=== PATIENT | male | born 1945 | race Caucasian/White ===

== ENCOUNTER 2020-03-18 10:53 | Outpatient (CLI) | payer MEDICARE, SELFPAY ==
--- NOTE | ~2020-03-18 | XR_ITS ---
EXAMINATION: XR knee LT min 4V DATE: 03/18/2020 11:35 INDICATION: Left knee pain. TECHNIQUE: 4 views of left knee were obtained. COMPARISON: None. FINDINGS: Bone alignment is normal. No fracture. There is mild osteoarthritis of medial and patellofe moral compartments. There is chondrocalcinosis of the menisci. There is a moderate-sized knee joint e ffusion. IMPRESSION: 1. Mild left knee osteoarthritis. 2. Moderate-sized left knee joint effusion. Reviewed, dictated and finalized at location A.
== END 2020-03-18 10:54 | disposition home or self-care (01) ==
PROVIDERS: PCP Family Medicine; Visit Provider Nurse Practitioner
DX: M25.562 Pain in left knee (principal); M17.12 Unilateral primary osteoarthritis, left knee; M25.462 Effusion, left knee
CPT/HCPCS: 73564

== ENCOUNTER 2020-05-06 10:48 | Outpatient (CLI) | payer OTHER, SELFPAY ==
--- NOTE | ~2020-05-06 | MR_ITS ---
EXAMINATION: MR knee LT wo con DATE: 05/06/2020 13:11 INDICATION: Unspecified left knee pain TECHNIQUE: Magnetic resonance imaging (MRI) of the left knee was performed without intravenous contra st. Sequences included coronal PD-weighted FSE, coronal PD-weighted FS FSE, sagittal T2-weighted FSE , sagittal PD-weighted FS FSE and axial PD weighted fat saturated FSE. COMPARISON: Left knee radiographs dated 04/25/2020 FINDINGS: Medial compartment: Medial meniscus is normal. Focal region of partial-thickness chondral ulceration along the medial mar gin of the anterior to central weightbearing medial femoral condyle. Lateral compartment: Linear increased signal extending to the inferior articular surface near the free edge of the body of the lateral meniscus which would be consistent with a longitudinal horizontal tear. There is however a similar configuration of chondrocalcinosis at this location on the plain radiographs which could a lso account for the linear increased signal. Articular cartilage is normal. Patellofemoral compartment: Deep chondral ulceration with underlying subarticular edema at the medial patellar facet and apical r idge. Mild chondral surface irregularity along the trochlear groove. Ligaments and tendons: Anterior and posterior cruciate ligaments are normal. There is a small ganglion cyst within the deep aspect of the otherwise normal appearing medial collateral ligament which may represent sequela of ch ronic sprain. The fibular collateral ligament is normal. Mild distal quadriceps tendinopathy without discrete tear. Well-defined linear bands of magic angle artifact at the distal aspect of the otherwis e normal patellar tendon. The visualized medial and lateral hamstring tendons as well as the iliotibi al band are normal. Fluid: Moderate-sized left knee joint effusion with synovitis most prominent along the posterior margin of H offa's fat pad and to lesser degree at the suprapatellar pouch. Small amount of fluid and additional synovitis extending to the popliteal recess. No loose osteochondral bodies identified. Osseous/other: Normal marrow signal aside from the previous noted small regions of mild subarticular edema at the pa tella. No fracture or pathologic marrow replacing process. IMPRESSION: 1. Increased signal at the body of the lateral meniscus equivocal for longitudinal horizontal tear ve rsus signal related to chondrocalcinosis as seen on the prior radiograph. 2. Mild medial and patellofemoral compartment osteoarthritis with high-grade patellar chondromalacia and small region of moderate grade chondral malacia along the weightbearing medial femoral condyle. 3. Moderate-sized knee joint effusion with synovitis most prominent along Hoffa's fat pad. Reviewed, dictated and finalized at location A. IMPRESSION: 1. Increased signal at the body of the lateral meniscus equivocal for longitudi nal horizontal tear versus signal related to chondrocalcinosis as seen on the p rior radiograph. 2. Mild medial and patellofemoral compartment osteoarthritis with high-grade pa tellar chondromalacia and small region of moderate grade chondral malacia along the weightbearing medial femoral condyle. 3. Moderate-sized knee joint effusion with synovitis most prominent along Hoffa 's fat pad.
== END 2020-05-06 10:49 ==
PROVIDERS: Visit Provider Orthopaedic Surgery
DX: M25.569 Pain in unspecified knee (principal); M17.12 Unilateral primary osteoarthritis, left knee; M94.262 Chondromalacia, left knee; M25.462 Effusion, left knee
CPT/HCPCS: 73721

== ENCOUNTER 2020-11-14 12:01 | Inpatient (IN) | payer MEDICARE, SELFPAY ==
[2020-11-14] VITALS (11 sets, daily range): BP systolic 90–163; BP diastolic 57–87; PULSE 72–85; RESP 16–27; TEMP 36.4–36.6; O2SAT 90–99; BMI 29.7
--- NOTE | ~2020-11-14 | CT_ITS ---
EXAMINATION: CTA chest PE protocol DATE: 11/14/2020 13:35 INDICATION: Chest pain. Elevated d-dimer. TECHNIQUE: Computed tomography angiography (CTA) of the chest was performed with 100 mL Omnipaque-350 intravenous contrast timed to evaluate the pulmonary arteries. Coronal maximum intensity projection 3D-reconstructions were created by the technologist. Automated exposure control and iterative reconst ruction technique were employed. Exam dose: 441.76 mGy-cm total exam DLP. COMPARISON: None. FINDINGS: There is diagnostic contrast enhancement of the pulmonary arteries and no evidence of pulmo nary embolism. Cardiomegaly. No pericardial or pleural effusion. Mild thoracic ascending aortic aneurysm (4.3 cm diameter). No hilar or mediastinal mass lesion or lymphadenopathy. Small sliding hiatal hernia. Normal adrenal glands. Mild dependent atelectasis, left greater than right. No pulmonary consolidation. Status post sternotomy. Diffuse osteopenia. Degenerative changes of the thoracic spine. IMPRESSION: No evidence of pulmonary embolus Cardiomegaly Reviewed, dictated and finalized at Location A. Reviewed, dictated and finalized at location B. HER OPERATOR
--- NOTE | ~2020-11-14 | US_ITS ---
EXAMINATION: US venous doppler [facility] DATE: 11/14/2020 15:49 INDICATION: Chest pain TECHNIQUE: Grimes scale images without and with compression and Doppler images of the bilateral lower e xtremity veins were obtained. COMPARISON: None FINDINGS: The right common femoral vein, profunda femoral vein, femoral vein, popliteal vein, peroneal trunk, p osterior tibial veins, and greater saphenous vein are patent. The left common femoral vein, profunda femoral vein, femoral vein, popliteal vein, peroneal trunk, po sterior tibial veins, and greater saphenous vein are patent. IMPRESSION: 1. Patent bilateral lower extremity veins. No evidence of deep venous thrombosis. Reviewed, dictated and finalized at location F. GING COGNITIVE ENGINEER IMPRESSION: 1. Patent bilateral lower extremity veins. No evidence of deep venous thrombosi s.
--- NOTE | ~2020-11-14 | XR_ITS ---
EXAMINATION: XR chest 1V portable INDICATION: Chest pain TECHNIQUE: Portable AP chest at 1259 hours COMPARISON: 11/07/2016 FINDINGS: Patchy bilateral opacities are present with more focal airspace opacity seen in the lung ba ses. There are linear subpleural opacities in the left midlung zone. The heart size is upper limits o f normal for technique. There is no pleural effusion or pneumothorax. Median sternotomy wires and med iastinal surgical clips are seen, likely from prior coronary artery bypass grafting. IMPRESSION: 1. Patchy bilateral opacities with more focal airspace opacity seen in the lung bases which could ref lect pneumonia and/or pulmonary edema and/or atelectasis. Reviewed, dictated and finalized at location A. GER [employer] IMPRESSION: 1. Patchy bilateral opacities with more focal airspace opacity seen in the lung bases which could reflect pneumonia and/or pulmonary edema and/or atelectasis.
--- NOTE | ~2020-11-14 | XR_ITS ---
EXAMINATION: XR chest 1V portable INDICATION: Shortness of breath TECHNIQUE: Portable AP chest at 0036 hours COMPARISON: 11/14/2020 FINDINGS: Patchy bilateral airspace opacities persist with slight worsening. Cardiomegaly is noted. T here is no pleural effusion or pneumothorax. Median sternotomy wires and mediastinal surgical clips a re seen, likely from prior coronary artery bypass grafting. IMPRESSION: 1. Patchy bilateral airspace opacities with interval worsening, consistent with pneumonia and/or pulm onary edema and/or atelectasis. Reviewed, dictated and finalized at location A. ORK ENGINEERING ADVISOR IMPRESSION: 1. Patchy bilateral airspace opacities with interval worsening, consistent with pneumonia and/or pulmonary edema and/or atelectasis.
--- NOTE | 2020-11-14 12:04 | ECG_ITS ---
Measurements Intervals [place] Rate: 76 P: 61 IA: 193 QRS: -55 QRSD: 128 T: 41 QT: 431 QTc: 486 Interpretive Statements SINUS RHYTHM ATRIAL COUPLET AND ATRIAL PREMATURE COMPLEX LEFT AXIS DEVIATION ANTEROLATERAL INFARCT, AGE INDETERMINATE BORDERLINE ST-T WAVE ABNORMALITY- INFERIOR LEADS BASELINE ARTIFACT- II, III, V5 ABNORMAL ECG Electronically Signed On 11-14-2020 14:00:44 EXTENSION WORK DIRECTOR by Balta Araiza D.O.
--- NOTE | 2020-11-14 12:08 | PC.NURSE ---
EDP NGUYỄN AT BEDSIDE.
--- NOTE | 2020-11-14 12:11 | ED.GENADULT ---
HPI - General Adult General Chief complaint: Chest Pain Stated complaint: CP Source: patient History of Present Illness HPI narrative: Patient is a 75 y/o male complaining of chest pain starting 4 hours ago. He describes his pain as a pressure and rates it as 8/10 currently. His pain radiates to his back. He states that Nitro helps some with his pain. He has no SOB. Related Data Home Medications Medication Instructions Recorded Confirmed carvedilol 3.125 mg tablet 3.125 mg PO Q12H 08/25/19 11/14/20 cholecalciferol (vitamin D3) 50 2,000 unit PO DAILY 08/25/19 11/14/20 mcg (2,000 unit) tablet clopidogrel 75 mg tablet 75 mg PO DAILY 08/25/19 11/14/20 ferrous sulfate 325 mg (65 mg 325 mg PO DAILY 08/25/19 11/14/20 iron) tablet hydrochlorothiazide 50 mg tablet 50 mg PO DAILY 08/25/19 11/14/20 lisinopril 40 mg tablet 40 mg PO DAILY 08/25/19 11/14/20 pravastatin 40 mg tablet 40 mg PO DAILY 08/25/19 11/14/20 multivitamin 1 tablet PO DAILY 04/25/20 11/14/20 cilostazol 100 mg PO BID 11/14/20 11/14/20 prednisone 20 mg PO BID 11/14/20 11/14/20 Allergies Allergy/AdvReac Type Severity Reaction Status Date / Time codeine Allergy Unknown Nausea and Verified 05/16/20 10:50 Vomiting tramadol Allergy Unknown Nausea and Verified 05/16/20 10:50 Vomiting Review of Systems Constitutional: Constitutional: Denies chills, Denies fever(s), Denies headache(s) and Denies weakness Eyes: Eyes: Denies blurry vision ENT: Denies headache(s) and Denies neck pain Cardiovascular: Cardiovascular: Reports chest pain and Denies dyspnea Respiratory: Respiratory: Denies cough and Denies dyspnea Gastrointestinal: Gastrointestinal: Denies abdominal pain, Denies diarrhea, Denies nausea and Denies vomiting Genitourinary: Genitourinary: Denies hematuria and Denies dysuria Musculoskeletal: Musculoskeletal: Denies back pain and Denies neck pain Neurologic: Denies headache(s) and Denies weakness [facility] Past Medical History Medical History (Updated 11/14/20 @ 20:36 by Nica Lipscomb MD) AAA (abdominal aortic aneurysm) Supposed to get surgery 1 month Anemia Anemia, iron deficiency Arthritis Bleeding nose CAD (coronary atherosclerotic disease) Carotid artery stenosis Colon polyps Combined hyperlipidemia Depression Gout Hearing loss History of DC (myocardial infarction) Hx of colonic polyp Hypertension Kidney disease PAD (peripheral artery disease) Sleep apnea Waiting on CPAP Surgical History Surgical History (Updated 11/14/20 @ 16:52 by Mariel Starkey NP) H/O colonoscopy with polypectomy History of back surgery History of quadruple bypass History of renal stent S/P peripheral artery angioplasty with stent placement Right leg Family History Family History Father Family history of coronary artery disease Mother Family history of coronary artery disease Other AAA (abdominal aortic aneurysm) Arthritis Diabetes mellitus Heart disease Hypertension Malignant neoplasm Social History Social History (Updated 11/14/20 @ 16:55 by Mariel Starkey NP) Social History: The patient lives with his who is in poor health. He does not have a durable power tax associate attorney for healthcare. His granddaughter is studying to be an RN and she lives 2 doors down. The patient is a full code. The patient had 2 children post son. One unintentionally overdosed and is . The other son as a drug addiction according to the granddaughter. The patient is retired from [employer] . According to the granddaughter the patient was caught smoking a cigarette just yesterday. So he does continue to smoke. No alcohol or illicit drugs. Smoking packs per day: 0.5 Smoking cigarettes per day: 10.0 Years smoked: 50 Smoking pack-years: 25.00 Smoking status: Current every day smoker Tobacco type: cigarettes Second hand tobacco smoke exposure: No Alcohol intake: never Sub
[2020-11-14 12:16] LABS: Basophils Absolute Auto 0.1 K/mm3 (0.0-0.1); Basophils Percent Auto 0.5 % (0.2-1.2); Eosinophils Percent Auto 0.1 % (0-4.4); Hemoglobin 11.5 g/dL (14.0-18.0); Immature Granulocyte Absolute 0.38 K/mm3 (0.00-0.031); Immature Granulocyte Percent A 2.5 % (0-0.5); Lymphocytes Absolute Auto 1.95 K/mm3 (0.9-3.2); Mean Corpuscular HGB Conc 31.9 g/dl (32-36); Mean Corpuscular Hemoglobin 27.6 pg (26-34); Mean Corpuscular Volume 86.5 fl (80-100); Mean Platelet Volume 9.1 fl (7.4-10.4); Monocytes Absolute Auto 0.3 K/mm3 (0.1-0.6); Monocytes Percent Auto 1.9 % (2.6-8.5); Neutrophils Absolute Auto 12.3 K/mm3 (1.3-6.7); Platelet Count Result 468 k/mm3 (150-375); Red Blood Count 4.16 M/mm3 (4.6-6.20); Red Cell Distribution Width 15.4 % (11.5-14.5)
[2020-11-14 12:27] LABS: Anion Gap 8 mmol/L (8-16); Blood Urea Nitrogen 38 mg/dL (9-20); Calcium 9.2 mg/dL (8.4-10.2); Carbon Dioxide 31 mmol/L (22-30); Chloride 100 mmol/L (98-107); Estimated CRCL calculation 36 ml/min; Estimated Glomerular Filt Rate 45; Glucose 198 mg/dL (75-110); Potassium 4.1 mmol/L (3.4-5.0); Sodium 139 mmol/L (137-145)
[2020-11-14 12:28] LABS: INR 0.9; Prothrombin Time 12.5 Seconds (11.1-14.7)
[2020-11-14 12:31] LABS: Partial Thromboplastin Time 31.2 SECONDS (22.3-36.8)
--- NOTE | 2020-11-14 12:37 | ECG_ITS ---
Measurements Intervals [employer] Rate: 71 P: 60 PA: 208 QRS: -38 QRSD: 121 T: 19 QT: 392 QTc: 429 Interpretive Statements SINUS RHYTHM ATRIAL PREMATURE COMPLEXES BORDERLINE AV CONDUCTION DELAY MINIMAL Q WAVES- HIGH LATERAL LEADS ANTEROLATERAL INFARCT, AGE INDETERMINATE BORDERLINE ST ABNORMALITY- INFERIOR LEADS BASELINE ARTIFACT- I, II, AVR, V3, V6 ABNORMAL ECG Electronically Signed On 11-14-2020 14:02:34 PERSONAL BANKING ASSISTANT by Balta Araiza D.O.
[2020-11-14 12:39] LABS: Troponin I 0.023 ng/mL (0.000-0.034)
[2020-11-14] MEDS: MORPHINE SULFATE (*CRX) 2 MG/ML INJ (12:43)
[2020-11-14] MEDS: NITROGLYCERIN SL 0.4 MG TABLET (12:43)
[2020-11-14 13:13] LABS: D Dimer 18.49 ug/mL (<0.48)
[2020-11-14] MEDS: ONDANSETRON INJ 4 MG/2 ML VIAL (13:22)
--- NOTE | 2020-11-14 13:24 | PC.NURSE ---
c/o of increased chest pain vorb for ekg, nitro x1 and morphine 2mg ivp from dr serrano after admin of nitro and morphine, pt became nauseated, dry heaves witnessed vorb x1 for zofran 4mg ivp from dr serrano
[2020-11-14] MEDS: SODIUM CHLORIDE 0.9% IV 1,000 ML 999 ML IV CONT (14:18)
[2020-11-14 15:09] LABS: Lactic Acid Reflex 3.9 mmol/L (0.7-2.1)
[2020-11-14 15:28] LABS: Troponin I 0.142 ng/mL (0.000-0.034)
--- NOTE | 2020-11-14 16:17 | PM.IMHP ---
H&P: HPI History of Present Illness Date/Time: 11/14/20 16:17 Chief Complaint: Chest pain Narrative: Cirilo Ruiz Jr. is a 75 year old male who sees a vascular surgeon elsewhere. The patient has a history of having a AAA. The patient is very hard of hearing in the granddaughters at the bedside answering questions. The granddaughter tells me that in about 1 month he is due to have his AAA repaired. The patient has been having some abdominal pain and some chest pain. He told the granddaughter that he was having some midsternal chest pain that did radiate down his left arm. He has a history of having a he also has a history of having peripheral artery disease and had a stent placed to his right leg. The patient's 1st troponin is 0.142. Lactic acid is 3.9. He is diabetic and his blood sugars 198. Creatinine is 1.5. The granddaughter is not sure if the patient has chronic renal failure. His D-dimer was elevated to 18.49. He has had no previous history of any blood clots. Chest CTa was read as no pulmonary embolism. I did request that we do venous Dopplers and those were negative as well. Nitroglycerin, morphine, Zofran, IV fluids, azithromycin and Rocephin. With more focal airspace opacities seen in the lung bases which could represent pneumonia and/or pulmonary edema and/or atelectasis. The granddaughter stated that she was not aware of the patient having any congestive heart failure. His and the granddaughter lives 2 houses down and she hopes to take care of her grandparents. The patient's white count was noted to be 15.0. However the granddaughter tells me that the patient was just started on prednisone about 2 days ago for gout to the small toe on the right foot. His H&H is stable at baseline 11.5 and 36.0. The patient was swabbed for COVID-19 and placed in isolation. Oxygen was applied. Blood cultures were obtained. I placed a consult for Cardiology as 1 has not been done as of yet. Patient is being admitted for observation on the date of service of 11/14/2020 Review of Systems Review of Systems: Narrative: The patient is very hard of hearing in the granddaughter is answering questions. All systems reviewed & are unremarkable except as noted in HPI and below Constitutional: Constitutional: Reports as per HPI and Reports no additional constitutional complaints Eyes: Eyes: Reports as per HPI and Reports no additional eye complaints ENT: Reports system reviewed and no additional complaints, except as documented and Reports Normal hearing present Cardiovascular: Cardiovascular: Reports no additional cardiovascular complaints Respiratory: Respiratory: Reports no additional respiratory complaints and Reports no additional respiratory complaints Gastrointestinal: Gastrointestinal: Reports as per HPI and Reports no additional gastrointestinal complaints Musculoskeletal: Musculoskeletal: Reports no additional musculoskeletal complaints Integumentary/Breasts: Skin/Breast: Reports system reviewed and no additional complaints, except as docu and Reports as per HPI Neurologic: Reports system reviewed and no additional complaints, except as documented, Reports as per HPI and Reports Normal hearing present Psychiatric: Psychiatric: Reports no additional psychiatric complaints and Reports as per HPI Endocrine: Endocrine: Reports no additional endocrine complaints Hematologic/Lymphatic: Hematologic/Lymphatic: Reports no additional hematologic/lymphatic complaints Allergic/Immunologic: Allergic/Immunologic: Reports no additional allergic/immunologic complaints [facility] Past Medical History Medical History (Updated 11/14/20 @ 17:02 by Mariel Starkey NP) AAA (abdominal aortic aneurysm) Supposed to get surgery 1 month Anemia Anemia, iron deficiency Arthritis Bleeding nose CAD (coronary atherosclerotic disease) Carotid artery stenosis Colon polyps Combined hyperlipidemia Depression Gout Hearing loss History of MA (myocar
[2020-11-14 17:56] LABS: Reflex Lactic Acid Yes or No Add Lactic
[2020-11-14 18:31] LABS: Hemoglobin A1C 6.2 % (<5.7)
[2020-11-14 18:33] LABS: Lactic Acid Reflex 2.1 mmol/L (0.7-2.1)
--- NOTE | 2020-11-14 20:01 | ADMGEN ---
This patient, Cirilo Ruiz Jr., was admitted to IMU Room 211-01. Patient/family oriented to hospital policies and general routines including ID bracelet, bed and alarms, visiting hours, pain management, procedures, bathroom and other care routines, personal items, smoking policy, room service/diet, and visiting hours. Information on how to activate the Rapid Response Team has been discussed. Patient/Family are encouraged to report perceived risks to care and to ask questions if they do not understand what they are told or what they should do.
--- NOTE | 2020-11-14 20:22 | ECG_ITS ---
Measurements Intervals [place] Rate: 82 P: 78 TN: 188 QRS: -63 QRSD: 121 T: 118 QT: 423 QTc: 496 Interpretive Statements SINUS RHYTHM VENTRICULAR PREMATURE COMPLEX RIGHT BUNDLE BRANCH BLOCK MINIMAL Q WAVES- INFERIOR LEADS ANTEROLATERAL INFARCT, AGE INDETERMINATE HIGH LATERAL INFARCT, AGE INDETERMINATE BASELINE ARTIFACT- I, II, III, AVL, AVF ABNORMAL ECG Electronically Signed On 11-16-2020 7:28:43 CHANGE MANAGEMENT LEAD by Balta Araiza D.O.
[2020-11-14 20:38] LABS: Magnesium 1.5 mg/dL (1.6-2.3)
[2020-11-14 21:12] LABS: Glucose Point of Care 153 (65-105)
[2020-11-14] MEDS: MAGNESIUM SULF 2 GM/WATER 50ML 2 GM/50 ML BAG IVPB (21:37)
[2020-11-14] MEDS: AMIODARONE 360 MG/D5W 200 ML 360 MG/200 ML BAG 33.33 MG IV CONT (22:22)
[2020-11-14] MEDS: AMIODARONE 150 MG/D5W 100 ML 150 MG/100 ML BAG 600 MG IV CONT (22:22)
[2020-11-14] MEDS: ENOXAPARIN 80 MG/0.8 ML SYRINGE SUB-Q (22:25)
[2020-11-14] MEDS: ASPIRIN 325 MG TABLET PO (22:26)
[2020-11-15] VITALS (25 sets, daily range): BP systolic 106–132; BP diastolic 69–83; PULSE 71–104; RESP 20–22; TEMP 35.8–37.2; O2SAT 90–99
--- NOTE | 2020-11-15 | ECHO_ITS ---
Patient Info Name: Cirilo Ruiz Age: 75 years : 1945 Gender: Male Ht: 65 in Wt: 172 lbs BSA: 1.91 m2 HR: 105 bpm BP: 122 / 83 mmHg Heart Rhythm: Tachycardia Technical Quality: Good Exam Date: 11/15/2020 11:22 AM Exam Location: [facility] Patient Status: Inpatient Admit Date: 11/15/2020 Staff Ordering Physician: Nabil Barron MD Residential Support Worker: Kenneth Slaughter RDCS Attending Provider: Abeba Fontaine MD Exam Type: CA echo doppler color flow Study Info Indications R07.9 - Chest pain, unspecified Complete two-dimensional, color flow and Doppler transthoracic echocardiogram is performed. Strain analysis performed. History/Risk Factors NSTEMI; chest pian, CAD w/ CABG, HTN, DM. Summary 1. Complete two-dimensional, color flow and Doppler transthoracic echocardiogram is performed. 2. Strain analysis performed. 3. There is mild to moderate aortic valve regurgitation. 4. The apical septum, apical lateral wall, apical inferior wall, and apical cap are akinetic. 5. The apical anterior wall, mid inferior wall, mid inferoseptal, mid anterolateral wall, mid anteroseptal, and mid inferolateral wall are hypokinetic. 6. Left ventricular systolic function is moderately reduced, estimated at 30-35%. 7. There is mildly increased left ventricular wall thickness. 8. Left ventricular chamber dimension is moderately enlarged. 9. The left ventricular diastolic function is grade I diastolic dysfunction. 10. Global longitudinal strain is abnormal at -8 %. 11. Left atrial chamber dimension is mildly enlarged. 12. Mild pulmonary hypertension, estimated pulmonary arterial systolic pressure is 42 mmHg. 13. There is mild tricuspid valve regurgitation. 14. There is mild to moderate mitral valve regurgitation. 15. There is moderate pulmonic regurgitation. Left Ventricle Left ventricular chamber dimension is moderately enlarged. Left ventricular systolic function is moderately reduced, estimated at 30-35%. There is mildly increased left ventricular wall thickness. The left ventricular diastolic function is grade I diastolic dysfunction. Global longitudinal strain is abnormal at -8 %. The apical septum, apical lateral wall, apical inferior wall, and apical cap are akinetic. The apical anterior wall, mid inferior wall, mid inferoseptal, mid anterolateral wall, mid anteroseptal, and mid inferolateral wall are hypokinetic. All other turcios appear normal. Right Ventricle Right ventricular chamber dimension is normal. Right ventricular systolic function is normal. Left Atria Left atrial chamber dimension is mildly enlarged. Right Atria Right atrial chamber dimension is normal. Atrial Septum Intact interatrial septum visualized by color flow imaging. Aortic Valve There is mild to moderate aortic valve regurgitation. The aortic valve is trileaflet. There is mild aortic valve sclerosis. There is no aortic valve stenosis. Pulmonic Valve The pulmonic valve is normal. There is no pulmonic valve stenosis. There is moderate pulmonic regurgitation. Mitral Valve The mitral valve has normal leaflets. There is no mitral valve stenosis. There is mild to moderate mitral valve regurgitation. Tricuspid Valve The tricuspid valve leaflets are normal. There is no significant tricuspid valve stenosis. There is mild tricuspid valve regurgitation. Mild pulmonary hypertension, estimated pulmonary arterial systolic pressure is 42 mmHg. Pericardium
--- NOTE | 2020-11-15 00:14 | ECG_ITS ---
Measurements Intervals [place] Rate: 93 P: 60 [place]: 190 QRS: -52 QRSD: 118 T: 111 QT: 371 QTc: 461 Interpretive Statements SINUS RHYTHM VENTRICULAR COUPLET AND ATRIAL PREMATURE COMPLEX LOW QRS VOLTAGE IN PRECORDIAL LEADS INCOMPLETE RIGHT BUNDLE BRANCH BLOCK ANTEROLATERAL INFARCT, AGE INDETERMINATE INFERIOR INFARCT, AGE INDETERMINATE BORDERLINE ST-T WAVE ABNORMALITY- HIGH LATERAL LEADS BASELINE ARTIFACT- I, II, III, AVR, AVL, AVF, V4-V6 ABNORMAL ECG Electronically Signed On 11-15-2020 7:06:35 MANAGER TESTING by Balta Araiza D.O.
[2020-11-15 00:28] LABS: Alveolar/Arterial O2 Gradient 616.6 mmHg; Base Excess ABG -0.3 mEq/l (+/-2.0); Carboxyhemoglobin 0.3 % THb (0-2.0); Fractional Inspired Oxygen 100 %; HCO3 ABG 24.1 mEq/l (22.0-26.0); Methemoglobin ABG 0.1 %THb (0-1.5); Oxygen Content ABG 14.9 %vol (16.0-22.0); Oxygen Saturation ABG 90.5 % (95.0-100.0); Oxyhemoglobin 89.2 % THb (90.0-100.0); PCO2 ABG 38.6 mmHg (35.0-45.0); PO2 ABG 57.8 mmHg (80.0-100.0); PO2 FiO2 Ratio Arterial Blood 0.58 %; Reduced Hemoglobin 10.4 %THb (0-5.0); Total Hemoglobin 11.9 g/dL (12.0-18.0); pH ABG 7.413 (7.350-7.450)
[2020-11-15 00:29] LABS: Modified Allen's Test Pass; Site Drawn RIGHT RADIAL
[2020-11-15 00:30] LABS: Device HIGH FLOW NASAL CANN
[2020-11-15] MEDS: AMIODARONE 360 MG/D5W 200 ML 360 MG/200 ML BAG 16.67 MG IV CONT (03:49)
[2020-11-15 05:01] LABS: Basophils Absolute Auto 0.1 K/mm3 (0.0-0.1); Basophils Percent Auto 0.6 % (0.2-1.2); Eosinophils Percent Auto 0.2 % (0-4.4); Hematocrit 37.5 % (42.0-52.0); Immature Granulocyte Absolute 0.32 K/mm3 (0.00-0.031); Immature Granulocyte Percent A 1.5 % (0-0.5); Lymphocytes Absolute Auto 4.11 K/mm3 (0.9-3.2); Lymphocytes Percent Auto 19.8 % (18.3-44.2); Mean Corpuscular Hemoglobin 27.8 pg (26-34); Mean Corpuscular Volume 86.8 fl (80-100); Mean Platelet Volume 9.4 fl (7.4-10.4); Monocytes Absolute Auto 1.1 K/mm3 (0.1-0.6); Monocytes Percent Auto 5.4 % (2.6-8.5); Neutrophils Percent Auto 72.5 % (45.5-73.1); Platelet Count Result 493 k/mm3 (150-375); Red Blood Count 4.32 M/mm3 (4.6-6.20); Red Cell Distribution Width 15.3 % (11.5-14.5); White Blood Count 20.7 K/mm3 (4.5-10.0)
[2020-11-15 05:14] LABS: Lactic Acid Reflex 2.7 mmol/L (0.7-2.1)
[2020-11-15 05:15] LABS: Alanine Aminotransferase 18 U/L (4-50); Albumin Level 3.8 g/dL (3.5-5.1); Alkaline Phosphatase 68 U/L (38-126); Anion Gap 10 mmol/L (8-16); Aspartate Amino Transferase 67 U/L (17-59); Bilirubin,Total 0.2 mg/dL (0.2-1.3); Blood Urea Nitrogen 33 mg/dL (9-20); Calcium 8.9 mg/dL (8.4-10.2); Carbon Dioxide 27 mmol/L (22-30); Chloride 101 mmol/L (98-107); Estimated CRCL calculation 35 ml/min; Estimated Glomerular Filt Rate 49; Glucose 131 mg/dL (75-110); Potassium 3.8 mmol/L (3.4-5.0); Sodium 138 mmol/L (137-145)
[2020-11-15 05:16] LABS: Atypical Lymphocytes Present; Platelet Estimate Increased (Adequate)
[2020-11-15 07:35] LABS: Free T4 Free Thyroxine Reflex 0.99 ng/dL (0.78-2.19)
[2020-11-15 07:54] LABS: Reflex Lactic Acid Yes or No Add Lactic
[2020-11-15 08:34] LABS: Glucose Point of Care 155 (65-105)
--- NOTE | 2020-11-15 08:38 | PM.CNCAR ---
Assessment and Plan Assessment and plan (1) Chest pain: Qualifiers: Chest pain type: unspecified Qualified Code(s): R07.9 - Chest pain, unspecified Code(s): R07.9 - Chest pain, unspecified Status: Acute Assessment and Plan: 75-year-old male with CAD, history of CABG (operative report not available, no grafts); hypertension, diabetes mellitus, AAA (awaiting [facility]AR as per outside notes), mild ascending aortic aneurysm; renal insufficiency, dyslipidemia. Patient admitted to the hospital with complaints of chest pain. EKG shows anteroseptal infarct, inferior infarct, probably old. Troponins are mildly elevated. Patient has required high-flow oxygen. He has leukocytosis with left shift. Patient is currently in the isolation and is being ruled out for COVID-19 infection. -continue dual antiplatelet therapy with aspirin and clopidogrel. Continue beta-migel, add statin. -initiate of low-molecular weight heparin. Patient has elevated troponins with underlying CAD with possible non ST elevation [place]. In addition, he has significantly elevated D-dimer levels and is being currently ruled out for COVID-19 infection. -check echocardiogram with Doppler to reassess LV function and wall motion. -continue amiodarone for now, continue to monitor on telemetry. May discontinue amiodarone tomorrow if no recurrent ventricular arrhythmias. -if patient's current clinical presentation is not attributed to COVID-19 infection, then he will need ischemic workup soon. Based on the review of the notes from [facility], coronary angiogram was anticipated prior to his EVAR. (2) Elevated troponin: Code(s): R77.8 - Other specified abnormalities of plasma proteins Status: Acute Assessment and Plan: Possible non ST elevation [place]. Patient has known CAD and history of CABG. Management as described above. (3) CAD (coronary artery disease): Code(s): I25.10 - Atherosclerotic heart disease of [place] coronary artery without angina pectoris Status: Acute Assessment and Plan: Management as above History of Present Illness History of Present Illness Consult date/time: 11/15/20 08:38 Date of consult-11/15/2020 Reason for consult: Chest pain Requesting physician:NISH Starkey Chief complaint: Chest pain HPI: 75-year-old male with CAD, history of CABG (operative report not available, no grafts); hypertension, diabetes mellitus, AAA (awaiting [facility]AR as per outside notes), mild ascending aortic aneurysm; renal insufficiency, dyslipidemia. Patient follows up with the [facility]. He was brought to [facility] ER on 11/14/2020 with complaints of chest pain that started about 4 hours prior to arrival. He had associated symptoms of shortness of breath. Patient is hard of hearing, and other information was from review of the chart and from the staff. EKG on my personal evaluation shows sinus rhythm, PACs, anteroseptal and inferior infarct, age undetermined, probably old. Troponins are mildly elevated with current peak level 2.070. Patient has leukocytosis with left shift. Chest x-ray shows patchy bilateral airspace opacities suggestive of pneumonia and/or pulmonary edema and/or atelectasis. Patient's D-dimer was elevated which led to the CT scan of the chest which reportedly did not show PE; showed mild thoracic ascending aortic aneurysm (4.3 cm diameter). Venous Doppler is negative for DVT. Patient has required high-flow oxygen. In addition, apparently patient had nonsustained ventricular tachycardia and has been initiated on amiodarone. On telemetry, he has been in sinus rhythm/sinus tachycardia with PVCs. He is currently in isolation and is being ruled out for COVID-19 infection. At the time of evaluation, patient denied any ongoing chest pain. Review of patient's outside medical records indicate that he had echocardiogram done on on 05/19/2021 which showed EF 55%, moderate lef
[2020-11-15 08:40] LABS: Lactic Acid 2.4 mmol/L (0.7-2.1)
[2020-11-15 08:48] LABS: Total Triiodothyronine (T3) 0.96 NG/ML (0.97-1.69)
[2020-11-15] MEDS: ASPIRIN 81 MG CHEWABLE TABLET PO (09:29)
[2020-11-15] MEDS: predniSONE 20 MG TABLET PO ×2 (09:29→16:53)
[2020-11-15] MEDS: carvediloL 3.125 MG TABLET PO ×2 (09:29→21:10)
[2020-11-15] MEDS: glipiZIDE XL 2.5 MG TAB.ER.24 PO (09:29)
[2020-11-15] MEDS: FERROUS SULFATE 324 MG TABLET PO (09:29)
[2020-11-15] MEDS: CLOPIDOGREL BISULFATE 75 MG TABLET PO (09:30)
[2020-11-15] MEDS: ATORVASTATIN 40 MG TABLET PO (09:50)
[2020-11-15] MEDS: ENOXAPARIN 80 MG/0.8 ML SYRINGE 78 MG SUB-Q ×2 (09:51→21:10)
[2020-11-15] MEDS: INSULIN ASPART (*BKC) 100 UNITS/ML SUB-Q (12:30)
[2020-11-15 12:44] LABS: Glucose Point of Care 205 (65-105)
[2020-11-15 13:56] LABS: SARS-CoV-2 RNA PCR Negative
--- NOTE | 2020-11-15 16:40 | PM.IMPN ---
Progress Note: A&P Assessment and Plan (1) Chest pain: Code(s): R07.9 - Chest pain, unspecified Status: Acute Assessment and Plan: Of quadruple bypass. His chest pain started last night but it was noted knee are that it started 4 hours prior to him coming to the emergency room. The patient stated that it was a pressure to his midsternal area in the granddaughter stated that it did radiate down his left arm but not to his neck. The patient was somewhat short of breath. He feels weak. First troponin was negative and 2nd was slightly elevated. Cardiology has been consulted. I do believe that his nurse ldr is elsewhere. However they came to the closest hospital. It looks like the patient is on Coreg. I did not anticoagulate this patient as of yet. He has been on Plavix due to his carotid artery disease. Further recommendation per Cardiology. 11/15/20 16:40 75-year-old male with a history of CABG hypertension diabetes AAA scheduled for [facility] tertiary care, patient presented chest pain, patient has elevated tropes an EKG shows acute injury, patient is been isolated tested for COVID, currently patient is hard of hearing and is sleepy patient was seen by Cardiology awaiting results of COVID-19 if is negative patient will need evaluation for further workup for the chest pain with elevated tropes, will follow-up in COVID 19 and further recommendation to follow. (2) Elevated troponin: Code(s): R77.8 - Other specified abnormalities of plasma proteins Status: Acute Assessment and Plan: The patient is not currently having any chest pain. Second troponin was elevated. Continue to trend. The patient was given nitro and morphine in the emergency room. 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 Hold metformin. Check A1c. Continue glipizide. On looking at his old med list so continue with what is on his current med list. (4) AAA (abdominal aortic aneurysm): Code(s): I71.4 - Abdominal aortic aneurysm, without rupture Status: Chronic Assessment and Plan: According to the granddaughter there patient is supposed to have surgery on that aneurysm in 1 month. (5) Renal failure: Code(s): N19 - Unspecified kidney failure Status: Acute Assessment and Plan: I am not sure if this is old or new compare this with. May consider holding lisinopril as well. Hold hydrochlorothiazide. (6) Anemia: Code(s): D64.9 - Anemia, unspecified Status: Chronic Assessment and Plan: Continue to monitor. (7) Depression: Code(s): F32.9 - Major depressive disorder, single episode, unspecified Status: Chronic Assessment and Plan: Continue with home medications. (8) Gout: Code(s): M10.9 - Gout, unspecified Status: Chronic Assessment and Plan: He has no complaints today I did not see any redness in that right foot. He had 2 days of steroids. He had been on allopurinol 1 time he was taken off of that. (9) Sleep apnea: Code(s): G47.30 - Sleep apnea, unspecified Status: Chronic Assessment and Plan: I believe the patient is still waiting for his machine to arrive at his house. I did order a CPAP for him to have here. (10) Anxiety: Code(s): F41.9 - Anxiety disorder, unspecified Status: Acute Assessment and Plan: Continue with home medication. (11) Combined hyperlipidemia: Code(s): E78.2 - Mixed hyperlipidemia Status: Chronic
[2020-11-15 17:23] LABS: Glucose Point of Care 144 (65-105)
[2020-11-15 20:16] LABS: Glucose Point of Care 166 (65-105)
[2020-11-16] VITALS (15 sets, daily range): BP systolic 121–136; BP diastolic 61–88; PULSE 71–99; RESP 18–23; TEMP 35.8–36.4; O2SAT 93–96
[2020-11-16 05:13] LABS: Basophils Percent Auto 0.3 % (0.2-1.2); Eosinophils Percent Auto 0.1 % (0-4.4); Hematocrit 31.7 % (42.0-52.0); Hemoglobin 10.4 g/dL (14.0-18.0); Immature Granulocyte Absolute 0.14 K/mm3 (0.00-0.031); Lymphocytes Absolute Auto 2.33 K/mm3 (0.9-3.2); Lymphocytes Percent Auto 16.7 % (18.3-44.2); Mean Corpuscular HGB Conc 32.8 g/dl (32-36); Mean Corpuscular Hemoglobin 26.8 pg (26-34); Mean Corpuscular Volume 81.7 fl (80-100); Mean Platelet Volume 9.7 fl (7.4-10.4); Monocytes Absolute Auto 0.8 K/mm3 (0.1-0.6); Monocytes Percent Auto 5.7 % (2.6-8.5); Neutrophils Absolute Auto 10.7 K/mm3 (1.3-6.7); Neutrophils Percent Auto 76.2 % (45.5-73.1); Platelet Count Result 406 k/mm3 (150-375); Red Blood Count 3.88 M/mm3 (4.6-6.20); Red Cell Distribution Width 15.2 % (11.5-14.5)
[2020-11-16 05:41] LABS: Alanine Aminotransferase 16 U/L (4-50); Albumin Level 3.4 g/dL (3.5-5.1); Alkaline Phosphatase 61 U/L (38-126); Anion Gap 8 mmol/L (8-16); Aspartate Amino Transferase 45 U/L (17-59); Bilirubin,Total 0.3 mg/dL (0.2-1.3); Blood Urea Nitrogen 32 mg/dL (9-20); Calcium 8.6 mg/dL (8.4-10.2); Carbon Dioxide 28 mmol/L (22-30); Chloride 98 mmol/L (98-107); Estimated CRCL calculation 37 ml/min; Estimated Glomerular Filt Rate 54; Glucose 123 mg/dL (75-110); Potassium 3.4 mmol/L (3.4-5.0); Sodium 134 mmol/L (137-145)
[2020-11-16 05:46] LABS: CRP 14.3 mg/dL (<1.0)
[2020-11-16 07:34] LABS: Glucose Point of Care 105 (65-105)
[2020-11-16] MEDS: ENOXAPARIN 80 MG/0.8 ML SYRINGE 78 MG SUB-Q (09:48)
[2020-11-16] MEDS: CLOPIDOGREL BISULFATE 75 MG TABLET PO (09:49)
[2020-11-16] MEDS: glipiZIDE XL 2.5 MG TAB.ER.24 PO (09:49)
[2020-11-16] MEDS: carvediloL 3.125 MG TABLET PO (09:49)
[2020-11-16] MEDS: predniSONE 20 MG TABLET PO ×2 (09:49→17:47)
[2020-11-16] MEDS: ASPIRIN 81 MG CHEWABLE TABLET PO (09:49)
[2020-11-16] MEDS: FERROUS SULFATE 324 MG TABLET PO (09:49)
[2020-11-16] MEDS: ATORVASTATIN 40 MG TABLET PO (09:49)
[2020-11-16] MEDS: POTASSIUM CHLORIDE 20 MEQ TABLET 40 MEQ PO (09:50)
--- NOTE | 2020-11-16 10:49 | PM.PNCARD ---
Progress Note: A&P Assessment and Plan (1) Chest pain: Qualifiers: Chest pain type: unspecified Qualified Code(s): R07.9 - Chest pain, unspecified Code(s): R07.9 - Chest pain, unspecified Status: Acute Assessment and Plan: 75-year-old male with CAD, history of CABG (operative report not available, no grafts); hypertension, diabetes mellitus, AAA (awaiting [facility]AR as per outside notes), mild ascending aortic aneurysm; renal insufficiency, dyslipidemia. Patient admitted to the hospital with complaints of chest pain. EKG shows anteroseptal infarct, inferior infarct, probably old. Troponins are mildly elevated. Patient has required high-flow oxygen. He has leukocytosis with left shift. Patient is currently in the isolation and is being ruled out for COVID-19 infection. His ejection fraction is significantly worse than it was as recently as 2 weeks ago. Unfortunately during that catheterization on fib with the 1st, his LAUREN was not engaged. He now has a significant cardiomyopathy. Cannot exclude a takotsubo. He needs repeat angiogram though especially since his LAUREN was not selectively engaged. Will DC his full dose Lovenox and switch him to DVT prophylaxis at this point since he is feeling better. I did talk to him as well as the patient's family. I also talked to his primary motor room controller. Dilution desires for him to be transferred to [facility] for his primary motor room controller to take care of his needs. (2) Elevated troponin: Code(s): R77.8 - Other specified abnormalities of plasma proteins Status: Acute Assessment and Plan: Possible non ST elevation [place]. Patient has known CAD and history of CABG. Management as described above. (3) CAD (coronary artery disease): Code(s): I25.10 - Atherosclerotic heart disease of [place] coronary artery without angina pectoris Status: Acute Assessment and Plan: Management as above (4) Cardiomyopathy: Code(s): I42.9 - Cardiomyopathy, unspecified Status: Acute Assessment and Plan: New and significant. (5) Ventricular arrhythmia: Code(s): I49.9 - Cardiac arrhythmia, unspecified Status: Acute Assessment and Plan: Continue beta-migel Subjective Date/time seen: 11/16/20 10:49 Interval history: 75-year-old admitted for shortness of breath, chest pain Date of service 11/16/2020: He feels much better. No chest pain or shortness of breath. Review of Systems Review of Systems: All systems reviewed & are unremarkable except as noted in HPI and below Constitutional: Constitutional: Denies weakness Eyes: Eyes: Denies blurry vision ENT: Denies Normal hearing present Comments: Extremely hard of hearing Cardiovascular: Cardiovascular: Denies chest pain Respiratory: Respiratory: Denies dyspnea Gastrointestinal: Gastrointestinal: Denies abdominal pain Genitourinary: Genitourinary: Denies dysuria Musculoskeletal: Musculoskeletal: Denies neck pain Integumentary/Breasts: Skin/Breast: Denies dry skin Neurologic: Denies headache(s) Psychiatric: Psychiatric: Denies anxiety Endocrine: Endocrine: Denies change in body appearance Hematologic/Lymphatic: Hematologic/Lymphatic: Denies easy bleeding Allergic/Immunologic: Allergic/Immunologic: Denies GI upset with certain foods Exam Narrative: Exam Narrative: PHYSICAL EXAMINATION: GENERAL: Alert, oriented, on supplemental high-flow oxygen MENTAL STATUS: affect appropriate to mood EYES: Extraocular movements intact, no pallor EARS: External ears appear normal, decreased hearing NOSE: Normal and patent, no discharge MOUTH: Mucous membranes moist NECK: Supple, no JVD CHEST: Coarse breath sounds HEART: Normal rate, regular rhythm, normal S1 and S2 ABDOMEN: Soft, nontender NEUROLOGICAL: Alert, normal speech, decreased hearing MUSCULOSKELETAL: No major deformity, no amputation EXTREMITIES: No pedal edema, no clubbing, no cyanosis
--- NOTE | 2020-11-16 11:56 | PM.TDS ---
Transfer Discharge Sum: Prov Provider Date of admission: 11/15/20 09:51 Primary care physician: Varghese Harrington, MD Admitting clinician: Abeba Fontaine MD Consults: 11/14/20 Care Coordination Consult Routine Comment: Reason for Consult:: Other Consult to Physician Routine Comment: Consulting Provider: Varghese Reilly square dance caller/MD group to consult: Cardiology Reason for consultation: Elevated cardiac enzyme/chest pain Has provider been notified: Yes DS: Admitting Diagnosis Admitting Diagnosis Admitting Diagnosis: Chief Complaint: Chest pain DS: Discharge Diagnosis Discharge Diagnosis (1) Chest pain: Code(s): R07.9 - Chest pain, unspecified Status: Acute Assessment and Plan: Of quadruple bypass. His chest pain started last night but it was noted knee are that it started 4 hours prior to him coming to the emergency room. The patient stated that it was a pressure to his midsternal area in the granddaughter stated that it did radiate down his left arm but not to his neck. The patient was somewhat short of breath. He feels weak. First troponin was negative and 2nd was slightly elevated. Cardiology has been consulted. I do believe that his timber skidder is elsewhere. However they came to the closest hospital. It looks like the patient is on Coreg. I did not anticoagulate this patient as of yet. He has been on Plavix due to his carotid artery disease. Further recommendation per Cardiology. 11/15/20 16:40 75-year-old male with a history of CABG hypertension diabetes AAA scheduled for [facility] tertiary care, patient presented chest pain, patient has elevated tropes an EKG shows acute injury, patient is been isolated tested for COVID, currently patient is hard of hearing and is sleepy patient was seen by Cardiology awaiting results of COVID-19 if is negative patient will need evaluation for further workup for the chest pain with elevated tropes, will follow-up in COVID 19 and further recommendation to follow. (2) Elevated troponin: Code(s): R77.8 - Other specified abnormalities of plasma proteins Status: Acute Assessment and Plan: The patient is not currently having any chest pain. Second troponin was elevated. Continue to trend. The patient was given nitro and morphine in the emergency room. (3) Diabetes: Qualifiers: Diabetes mellitus type: type 2 Diabetes mellitus local company intermodal truck driver insulin use: without local company intermodal truck driver use Diabetes mellitus complication status: with circulatory complication Diabetes mellitus complication detail: with other circulatory complications Qualified Code(s): E11.59 - Type 2 diabetes mellitus with other circulatory complications Code(s): E11.9 - Type 2 diabetes mellitus without complications Status: Chronic Assessment and Plan: Accu-Cheks AC and HS. Hold metformin. Check A1c. Continue glipizide. On looking at his old med list so continue with what is on his current med list. (4) AAA (abdominal aortic aneurysm): Code(s): I71.4 - Abdominal aortic aneurysm, without rupture Status: Chronic Assessment and Plan: According to the granddaughter there patient is supposed to have surgery on that aneurysm in 1 month. (5) Renal failure: Code(s): N19 - Unspecified kidney failure Status: Acute Assessment and Plan: I am not sure if this is old or new compare this with. May consider holding lisinopril as well. Hold hydrochlorothiazide. (6) Anemia: Code(s): D64.9 - Anemia, unspecified Status: Chronic Assessment and Plan: Continue to monitor. (7) Depression: Code(s): F32.9 - Major depressive disorder, single episode, unspecified Status: Chronic Assessment and Plan: Continue with home medications. (8) Gout: Code(s): M10.9 - Gout, unspecified Status: Chronic Assessment and Plan: He has no complaints today I did not see any redness
[2020-11-16 12:33] LABS: Glucose Point of Care 241 (65-105)
[2020-11-16 17:25] LABS: Glucose Point of Care 159 (65-105)
[2020-11-16 19:41] LABS: Glucose Point of Care 231 (65-105)
== END 2020-11-16 20:35 | disposition short-term general hospital (02) | DRG 282 ==
LOC: ANHED 14:57 → ANHIMU 14:59
PROVIDERS: Family Medicine; Nurse Practitioner; Admitting Provider Family Medicine; Emergency Provider Emergency Medicine; PCP Internal Medicine; Visit Provider Family Medicine
DX: I21.4 Non-ST elevation (NSTEMI) myocardial infarction (principal); Z20.822 Contact with and (suspected) exposure to COVID-19; I25.10 Atherosclerotic heart disease of native coronary artery without angina pectoris; I49.9 Cardiac arrhythmia, unspecified; N19 Unspecified kidney failure; I12.9 Hypertensive chronic kidney disease with stage 1 through stage 4 chronic kidney disease, or unspecified chronic kidney disease; E11.22 Type 2 diabetes mellitus with diabetic chronic kidney disease; N18.9 Chronic kidney disease, unspecified; E11.51 Type 2 diabetes mellitus with diabetic peripheral angiopathy without gangrene; I73.9 Peripheral vascular disease, unspecified; I71.4 Abdominal aortic aneurysm, without rupture; D50.9 Iron deficiency anemia, unspecified; M19.90 Unspecified osteoarthritis, unspecified site; E78.5 Hyperlipidemia, unspecified; F32.9 Major depressive disorder, single episode, unspecified; M10.9 Gout, unspecified; G47.30 Sleep apnea, unspecified; F17.210 Nicotine dependence, cigarettes, uncomplicated; I25.2 Old myocardial infarction; Z95.1 Presence of aortocoronary bypass graft; Z95.820 Peripheral vascular angioplasty status with implants and grafts
CPT/HCPCS: 36415; 36600; 71045; 71275; 80048; 80053; 82375; 82805; 82948; 83036; 83050; 83605; 83735; 84439; 84443; 84480; 84484; 85025; 85380; 85610; 85730; 86140; 87040; 93005; 93306; 93970; 96365; 96372; 96375; 96376; 99285; A9270; C9803; G0378; J0282; J0456; J0696; J1650; J1815; J2270; J2405; J3475; J7030; J7512; Q9967; U0003; U0005

== ENCOUNTER 2021-02-19 17:54 | Emergency (ER) | payer MEDICARE, SELFPAY ==
--- NOTE | ~2021-02-19 | XR_ITS ---
EXAMINATION: XR knee LT 3V DATE: 02/19/2021 18:30 INDICATION: Left knee pain TECHNIQUE: Three views of the left knee were obtained. COMPARISON: 04/25/2020 FINDINGS: Alignment is normal. No fracture or osteochondral lesion. There is chondrocalcinosis of the menisci. No joint effusion/synovitis. Calcified atherosclerosis is noted. IMPRESSION: 1. No acute osseous abnormality. Reviewed, dictated and finalized at location A.
--- NOTE | ~2021-02-19 | CT_ITS ---
EXAMINATION: CT brain wo con INDICATION: Head injury COMPARISON: None TECHNIQUE: Standard unenhanced head CT. The dose-length product (DLP) was 315.48 mGy-cm. The mA was a djusted according to patient size. Iterative reconstruction technique was employed. FINDINGS: There is no acute intraparenchymal hemorrhage. No evidence of mass lesion. No evidence of a cute infarction. There is mild periventricular and subcortical hypodensity probably related to small vessel ischemic disease. There is mild prominence of the sulci and ventricles related to cerebral atr ophy. Intracranial calcified cerebral atherosclerosis is noted. There are no extra-axial collections. There is no mass effect or midline shift. The orbits and soft tissues are unremarkable. The visuali zed sinuses and mastoid air cells are well aerated. IMPRESSION: 1. No acute intracranial abnormality. 2. Age related findings. Reviewed, dictated and finalized at location A.
--- NOTE | ~2021-02-19 | CT_ITS ---
EXAMINATION: CT cervical spine wo con DATE: 02/19/2021 18:19 INDICATION: Head injury TECHNIQUE: Computed tomography (CT) of the cervical spine was performed without intravenous contrast. The dose-length product (DLP) was 384.88 mGy-cm. Automated exposure control and iterative reconstruc tion technique were employed. COMPARISON: None FINDINGS: There is no fracture. There are 2 mm of anterolisthesis of C3 on C4. The vertebral body hei ghts are maintained. There is moderate loss of intervertebral disc space height at C5-6 and C6-7. The odontoid is intact. There is severe multilevel facet and uncovertebral joint osteoarthritis. IMPRESSION: 1. Moderate cervical spondylosis without acute findings. Reviewed, dictated and finalized at location A.
--- NOTE | ~2021-02-19 | XR_ITS ---
EXAMINATION: XR chest 2V DATE: 02/19/2021 18:30 INDICATION: Chest pain after fall, history of coronary artery disease and hypertension TECHNIQUE: AP and lateral views of the chest are obtained. COMPARISON: 11/15/2020 FINDINGS: There are minimal airspace opacities of the lower lobes. There is no pleural effusion or pn eumothorax. The heart size is normal. There is moderate thoracic spondylosis. Median sternotomy wires and mediastinal surgical clips are seen, likely from prior coronary artery bypass grafting. IMPRESSION: 1. Minimal airspace opacities of the lower lobes, likely atelectasis. Reviewed, dictated and finalized at location A.
[2021-02-19 17:53] VITALS: BP 142/89; PULSE 98; RESP 17; TEMP 36.6; O2SAT 99
[2021-02-19 19:20] VITALS: BP 133/83; PULSE 81; RESP 16; O2SAT 97
--- NOTE | 2021-02-19 19:26 | ED.HEATRA ---
HPI - Head Injury General Chief complaint: Head Injury Stated complaint: fall down ravine/hi Time Seen by Provider: 02/19/21 17:58 History of Present Illness HPI Narrative: Patient is a 75-year-old male who presents ER after a fall. He went outside to pour out some baking grease when he tripped and fell backwards. He rolled down a grassy embankment a total distance of 20 feet with an elevation change of 10 feet. He struck his head but did not lose consciousness. He takes Plavix. He is reporting left knee pain. He is a difficult historian due to the fact that he does not have his hearing aids. Related Data Home Medications Medication Instructions Recorded Confirmed carvedilol 3.125 mg tablet 3.125 mg PO Q12H 08/25/19 11/14/20 cholecalciferol (vitamin D3) 50 2,000 unit PO DAILY 08/25/19 11/14/20 mcg (2,000 unit) tablet clopidogrel 75 mg tablet 75 mg PO DAILY 08/25/19 11/14/20 ferrous sulfate 325 mg (65 mg 325 mg PO DAILY 08/25/19 11/14/20 iron) tablet hydrochlorothiazide 50 mg tablet 50 mg PO DAILY 08/25/19 11/14/20 lisinopril 40 mg tablet 40 mg PO DAILY 08/25/19 11/14/20 pravastatin 40 mg tablet 40 mg PO DAILY 08/25/19 11/14/20 multivitamin 1 tablet PO DAILY 04/25/20 11/14/20 cilostazol 100 mg PO BID 11/14/20 11/14/20 prednisone 20 mg PO BID 11/14/20 11/14/20 Allergies Allergy/AdvReac Type Severity Reaction Status Date / Time codeine Allergy Unknown Nausea and Verified 02/19/21 18:03 Vomiting tramadol Allergy Unknown Nausea and Verified 02/19/21 18:03 Vomiting Review of Systems Review of Systems: All systems reviewed & are unremarkable except as noted in HPI and below Eyes: Eyes: Denies change in vision Cardiovascular: Cardiovascular: Denies chest pain and Denies radiating jaw, neck or arm pain Gastrointestinal: Gastrointestinal: Denies abdominal pain, Denies nausea and Denies vomiting Musculoskeletal: Musculoskeletal: Denies back pain, Reports arthralgias (left knee), Denies joint swelling and Denies muscle cramps Neurologic: Denies syncope, Denies headache(s), Denies focal weakness and Denies numbness PMFSH Past Medical History Medical History AAA (abdominal aortic aneurysm) Supposed to get surgery 1 month Anemia Anemia, iron deficiency Arthritis Bleeding nose CAD (coronary atherosclerotic disease) Carotid artery stenosis Colon polyps Combined hyperlipidemia Depression Gout Hearing loss History of [place] (myocardial infarction) Hx of colonic polyp Hypertension Kidney disease PAD (peripheral artery disease) Sleep apnea Waiting on CPAP Surgical History Surgical History H/O colonoscopy with polypectomy History of back surgery History of quadruple bypass History of renal stent S/P peripheral artery angioplasty with stent placement Right leg Family History Family History Father Family history of coronary artery disease Mother Family history of coronary artery disease Other AAA (abdominal aortic aneurysm) Arthritis Diabetes mellitus Heart disease Hypertension Malignant neoplasm Social History Social History Social History: The patient lives with his who is in poor health. He does not have a durable power excelsior cutter for healthcare. His granddaughter is studying to be an RN and she lives 2 doors down. The patient is a full code. The patient had 2 children post son. One unintentionally overdosed and is . The other son as a drug addiction according to the granddaughter. The patient is retired from [employer] . According to the granddaughter the patient was caught smoking a cigarette just yesterday. So he does continue to smoke. No alcohol or illicit drugs. Smoking packs per day: 0.5 Smoking cigarettes per day: 10.0 Years smoked: 50 Smoking pack-years: 25.00
== END 2021-02-19 19:40 | disposition home or self-care (01) ==
PROVIDERS: Emergency Provider Emergency Medicine; PCP Internal Medicine
DX: S00.01XA Abrasion of scalp, initial encounter (principal); Z79.02 Long term (current) use of antithrombotics/antiplatelets; F17.210 Nicotine dependence, cigarettes, uncomplicated; W17.89XA Other fall from one level to another, initial encounter
CPT/HCPCS: 70450; 71046; 72125; 73562; 99284

== ENCOUNTER 2021-09-12 10:36 | Outpatient (CLI) | payer MEDICARE, SELFPAY ==
--- NOTE | 2021-09-12 | ECHO_ITS ---
Patient Info Name: Cirilo Ruiz Age: 75 years : 1945 Gender: Male Ht: 65 in Wt: 176 lbs BSA: 1.94 m2 HR: 58 bpm BP: 158 / 81 mmHg Heart Rhythm: Sinus Rhythm Technical Quality: Good Exam Date: 09/12/2021 10:50 AM Exam Location: [facility] Patient Status: Outpatient Admit Date: 09/12/2021 Staff Ordering Physician: GloriaEmre MD Boatswain'S Mate: Trish Machado RDCS Attending Provider: Jos*Emre MD Referring Physician: Kelly PANG; Exam Type: CA echo doppler color flow Study Info Indications G47.33 - OBSTRUCTIVE SLEEP APNEA G47.30 - SLEEP APNEA UNSPECIFIED Complete two-dimensional, color flow and Doppler transthoracic echocardiogram is performed. Summary 1. Complete two-dimensional, color flow and Doppler transthoracic echocardiogram is performed. 2. Left ventricular chamber dimension is normal. 3. Left ventricular systolic function is lower limits of normal, estimated at 50-55%. Mild hypokinesis of the mid anteroseptum mid inferoseptum and basal inferior wall. 4. There is mildly increased left ventricular wall thickness. 5. The left ventricular diastolic function is grade I diastolic dysfunction. 6. There is trace tricuspid valve regurgitation. 7. No pulmonary hypertension, estimated pulmonary arterial systolic pressure is 33 mmHg. 8. There is no aortic valve stenosis. 9. Atrial septal aneurysm. Consider bubble study if clinically indicated. Left Ventricle Left ventricular chamber dimension is normal. Left ventricular systolic function is lower limits of normal, estimated at 50-55%. Mild hypokinesis of the mid anteroseptum mid inferoseptum and basal inferior wall. There is mildly increased left ventricular wall thickness. The left ventricular diastolic function is grade I diastolic dysfunction. Global longitudinal strain is mildly elevated at -14 %. Right Ventricle Right ventricular chamber dimension is normal. Right ventricular systolic function is normal. Left Atria Left atrial chamber dimension is mildly enlarged. Right Atria Right atrial chamber dimension is mildly enlarged. Atrial Septum Atrial septal aneurysm. Consider bubble study if clinically indicated. Aortic Valve The aortic valve is trileaflet. There is no aortic valve stenosis. There is mild aortic valve regurgitation. There is mild aortic valve calcification. Pulmonic Valve The pulmonic valve is not well visualized. Mitral Valve The mitral valve has normal leaflets. There is mild mitral valve regurgitation. The mitral valve annulus is mildly calcified. Tricuspid Valve The tricuspid valve leaflets are normal. There is trace tricuspid valve regurgitation. No pulmonary hypertension, estimated pulmonary arterial systolic pressure is 33 mmHg. Aorta The aortic root size at the sinus of Valsalva is mildly dilated. Consider CT chest if clinically indicated. There is mild aortic atherosclerosis. Left Ventricular Outflow Tract Name Value Normal LVOT 2D LVOT Diameter 2.0 cm LVOT Doppler LVOT Peak Gradient 6 mmHg LVOT Mean Gradient 3 mmHg
== END 2021-09-12 10:37 | disposition home or self-care (01) ==
LOC: ANHCARD 10:39
PROVIDERS: PCP Internal Medicine; Visit Provider Internal Medicine Pulmonary Disease
DX: G47.30 Sleep apnea, unspecified (principal); I25.3 Aneurysm of heart
CPT/HCPCS: 93306